=== PATIENT | female | born 1985 ===

== ENCOUNTER 2016-12-09 21:58 | Emergency (ER) | payer MEDICAID ==
[2016-12-09] MEDS ORDERED: Phenaphthazine-PH Test Paper VI ONE (22:37)
[2016-12-09 22:47] VITALS: BMI 30.6
[2016-12-09] MEDS ORDERED: Lactated Ringer's 1,000 ML IV SCH (23:00)
[2016-12-09] MEDS ORDERED: Betamethasone Soluspan 30 mg/5mL Inj Susp IM ONE (23:09)
[2016-12-09] MEDS ORDERED: Magnesium Sulfate 4 gm/100 ml 4 GM/100 ML BAG IV ONE (23:17)
[2016-12-09] MEDS ORDERED: Magnesium Sul 40GM/1L SW 40 GM/1,000 ML ML IV ONE (23:18)
[2016-12-09 23:28] LABS: HEMATOCRIT 32.9 % (34.0-47.0); MEAN CORPUSCULAR HEMOGLOBIN 27.4 pg (27.0-31.0); MEAN CORPUSCULAR HGB CONC 32.6 g/dL (33.0-37.0); RED CELL DISTRIBUTION WIDTH 14.3 % (11.5-14.5); WHITE BLOOD COUNT 12.9 K/uL (4.8-10.8)
--- NOTE | 2016-12-09 23:53 | OBHP ---
Datetime: 12/09/2016 23:09 IP Adm Impression: , intrauterine IP Admit Plan Other: transfer to [facility] Admit Comment, IP Provider: 31 yo F at 31.4 weeks gestation presents to [facility] due to increase d amount of watery vaginal discharge around 7:30 pm. + movements, denies vaginal bleeding, denies contractions. Pt is unsure if she ruptured membr anes, but states she does not think this is the case. No sexual activity for past 3 months. complicated by labile blood sugars/GDM A2. Pt supposed to go to [facility] for insulin therapy on 12/11. OBHx: 1 2009 (due to macrosomia as per records), 1 2011. Med hx: hypothyroid, GDM Medicine: glyburide 5mg twice daily, vitamins, iron Surgeries: x1 Allergies: nkda labs: HIV neg, RPR neg 11/2016. Rubella immune, HbsAg neg in 07/2015. GBS+ 08/08/16 ROS: denies chest pain, sob, nausea, vomiting, diarrhea, headache, dizziness, burning with urinati on care: [facility]. Last visit: 12/03. Last u/s: 11/21 PE: General: AAOx3, no acute distress CV: S1/S2. Regular rate and rhythm Resp: lungs clear to auscultation bilaterally. Normal respiratory effort. Abd: gravid, +BS. Extremities: no pain on palpation, no edema. Speculum exam: + pooling of fluid, +nitrazine A: 31 yo , premature rupture of membraines at 31.4 w P: hydration with LR, type and screen, cbc initiate transfer to [facility] Addendum by Dr. Quintero: Patient evaluated independently and I agree with the above. Patient is a @ 31.4 wks, previous x 1, previous , GDMA2 on Glyburide presents with increased v aginal leaking. Patient is confirmed ruptured on presentation. +pooling, +nitrazine, ALICIA bedside ,5. No vaginal bleeding, no abdominal pain, no fever, no cervical discharge suggestive of infection. Os a ppeared closed on exam. FHR = 140 mod michele, +accels, no decels. Delvis q 4-5 mins. Spoke with MFM - patient to be transferred to [facility]. Patient started on MgSO4 4gm bolus for neuroprotection and [place], Betamethasone was given, latency antibiotics were started (Ampicillin and Azithromycin ). Explained to patient at this time plan is to transfer care to [facility]. All questions answered . Pt awaiting transport Extremities - PN: Normal Abdomen - PN: Normal Back - PN: Not Done Lungs - PN: Normal Heart - PN: Normal Thyroid - PN: Not Done Neurologic - PN: Not Done HEENT - PN: Normal General - PN: Normal Presentation-Admit: Vertex IP Fetus A Comments: Bedside ALICIA <5 FHR - Baseline A Provider: 130s Amniotic Fluid Color, Provider: Clear Membranes, Provider: Ruptured Contraction Comments Provider: q 4-5 Comments, ACOG Physical Exam: cervix appeared closed. Gestation - Est Wks by US: 31.4 Pool Provider: Positive Nitrazine Provider: Positive EGA AdmitDate IP: 31.4 Vital Signs Provider: Reviewed IP Chief Complaint: Suspected ruptured membranes NICHD Variability Prov Fetus A: Moderate 6-25bpm NICHD Accel Fetus A IP Provider: [id number] NICHD Decel Fetus A IP Provider: None Dilatation, Provider: closed
[2016-12-10 07:11] VITALS: BP 112/66; PULSE 92
[2016-12-10] MEDS ORDERED: Ampicillin 2 GM in Sodium Chloride 0.9% 100 ML IVPB SCH (23:30)
[2016-12-10] MEDS ORDERED: Azithromycin 500 MG in Sodium Chloride 0.9% 250 ML IVPB SCH (23:30)
== END 2016-12-10 | disposition short-term general hospital (02) ==
LOC: H.EROB2 21:58
DX: O42.913 Preterm premature rupture of membranes, unspecified as to length of time between rupture and onset of labor, third trimester (principal); Z3A.31 31 weeks gestation of pregnancy
CPT/HCPCS: 85027; 86850; 86900; 96365; 99283; J0290; J0702; J3475; J7120